=== PATIENT | male | born 1950 | race Caucasian/White ===

== ENCOUNTER → 2022-05-08 | Outpatient (CLI) | payer MEDICARE | LOC: M RAD 13:18 | PROVIDERS: ATTEND Ophthalmology | DX: H35.82 Retinal ischemia (principal); I65.22 Occlusion and stenosis of left carotid artery ==

== ENCOUNTER → 2024-10-19 | Outpatient (CLI) | payer MEDICARE | LOC: M RAD 08:22 | PROVIDERS: ATTEND Physician Assistant | DX: I65.23 Occlusion and stenosis of bilateral carotid arteries (principal) ==

== ENCOUNTER 2024-11-26 08:27 | Day surgery (SDC) | payer MEDICARE ==
[~2024-11-26] VITALS: Ht 175.3 cm; Wt 66.0 kg
[2024-11-26] MEDS: LIDOCAINE 3.5 % 1ML OPHTH TOPICAL GEL OU ONE (06:00)
[2024-11-26] MEDS: OFLOXACIN 0.3 % (OCUFLOX) OPTH SOL 5ML OS ONE (06:00)
[~2024-11-26 08:27] MED LIST: LISI20TA37 PO; METF-838 PO; PHENYLEPHRINE 10% OPHTH SOL 5ML OS PRN; ROSU40TA81 PO; XALA0.007
[2024-11-26] MEDS: CYCLOPENTOLATE 1% OPHTH SOLN 2ML BTL OS SCH (09:18)
[2024-11-26] MEDS: PHENYLEPHRINE 2.5% OPHTH SOL 2ML OS SCH (09:19)
[2024-11-26] MEDS: TROPICAMIDE 1% OPHTH SOLN 15ML OS SCH (09:19)
[2024-11-26] MEDS ORDERED: MIDAZOLAM INJ 2MG/2ML VIAL As Ordered ONE (09:56)
[2024-11-26] MEDS ORDERED: fentaNYL 100 MCG/2 ML INJECTION As Ordered ONE (09:57)
[2024-11-26] MEDS: LIDOCAINE 1% SDV 5ML VIAL As Ordered ONE (10:32)
[2024-11-26] MEDS: BSS IRRIG/VANCO(10MG)/TOBRA(5MG)/EPINEPH(1:1000-0.5CC)500ML BAG-ORONLY As Ordered ONE (10:39)
[2024-11-26] MEDS: CEFUROXIME 1MG/0.1ML INTRACAMERAL INJ As Ordered ONE (10:39)
[2024-11-26 10:45] VITALS: BP 145/69; TEMP 97.9; O2SAT 97
== END 2024-11-26 10:54 | disposition home or self-care (01) ==
LOC: M SDC 08:27
PROVIDERS: ATTEND Ophthalmology
DX: H25.12 Age-related nuclear cataract, left eye (principal); I10 Essential (primary) hypertension; E78.5 Hyperlipidemia, unspecified; E11.9 Type 2 diabetes mellitus without complications; Z79.899 Other long term (current) drug therapy; Z79.84 Long term (current) use of oral hypoglycemic drugs
CPT/HCPCS: 66984; J0697; J2250; J3010; V2632